=== PATIENT | male | born 1975 | race Hispanic/Latino ===

== ENCOUNTER 2023-05-07 16:01 | Emergency (ER) | payer BC, SELFPAY ==
[2023-05-07] MEDS ORDERED: Ketorolac Tromethamine 30 MG (1 mL) VIAL ONE (17:43)
== END 2023-05-07 18:22 | disposition home or self-care (01) ==
LOC: ERS 16:01
DX: S39.012A Strain of muscle, fascia and tendon of lower back, initial encounter (principal); V69.40XA Driver of heavy transport vehicle injured in collision with unspecified motor vehicles in traffic accident, initial encounter
CPT/HCPCS: 72100; 96372; J1885